=== PATIENT | female | born 1960 | race Hispanic/Latino ===

== ENCOUNTER 2020-01-30 09:51 | Outpatient (AMBR) | payer SELFPAY ==
--- NOTE | 2020-01-30 11:11 | PT.ODAYNRPT ---
PT Outpatient Daily Note Date of Service: 01/30/20 OP Daily Note Visit Reasons: right shoulder Outpatient Physical Therapy Treatment Date: 01/30/20 Subjective: Pt's shoulder hurts a lot and can barely move the arm. Objective: Please see flow chart for list of ther ex performed Assessment: pain with exercises; unable to complete scit fit due to increase shoulder pain after ~ 2 mins. Pt right LE started to tremor due to pain and was advised to stop. heat help decrease shoulder pain towards end of session Plan: Continue with PT Length of Time (minutes) of Treatment: 15 Minutes Office Procedures PT Procedures PT Date of Service: 01/30/20 Therapeutic Exercise 15 minutes: Yes
--- NOTE | 2020-02-01 10:29 | PT.ODAYNRPT ---
PT Outpatient Daily Note Date of Service: 02/01/2020 OP Daily Note Visit Reasons: right shoulder Outpatient Physical Therapy Treatment Date: 02/01/20 Subjective: pt states she is in a lot of pain. she is sore from last visit. she does take pills for pain. Objective: see flow sheet. Assessment: pt on scifit with very little movement. she is in a lot of pain and discomfort which limits her mobility. on bike for short few mins due to pain. followed by table slides using pillow case in directions ER/IR and forward. she moves very slow due to pain. she keeps her shoulder close to her body as she is very guarded due to pain. Plan: continue POC per PT. Length of Time (minutes) of Treatment: 30 Minutes Office Procedures PT Procedures PT Date of Service: 01/30/20 Therapeutic Exercise 15 minutes: Yes PT Procedures PT Date of Service: 02/01/20 Therapeutic Exercise 30 minutes: Yes
--- NOTE | 2020-02-11 14:14 | PT.ODS1RPT ---
PT OP Progress/Discharge Note Date of Service: 02/11/20 Progress Note/DC Note Progress Note/Discharge Note: DC Note Patient Information Visit Reasons: right shoulder Service Continue Service or Discharge: Discharge Discharge Date: 02/11/20 Status Assessment: Pt has been seen for 3 visits (eval + 2 visits). Pt last treated 02/01/20 and stop attending physical therapy. Pt was contact 02/11/20 and wanted to be release from care due to physical therapy not helping. Pt will be d/c from care per Pt's request. Pt did not meet set goals in therapy, thank you for your referrals Office Procedures PT Procedures PT Date of Service: 01/30/20 Therapeutic Exercise 15 minutes: Yes PT Procedures PT Date of Service: 02/01/20 Therapeutic Exercise 30 minutes: Yes
== END 2020-02-27 23:59 | disposition home or self-care (01) ==
PROVIDERS: PCP Orthopaedic Surgery; Referring Provider Orthopaedic Surgery; Visit Provider Orthopaedic Surgery
DX: M75.41 Impingement syndrome of right shoulder (principal); S43.431D Superior glenoid labrum lesion of right shoulder, subsequent encounter; M25.511 Pain in right shoulder; R53.1 Weakness; W19.XXXD Unspecified fall, subsequent encounter
CPT/HCPCS: 97110